=== PATIENT | male | born 1985 | race Two or more races ===

== ENCOUNTER 2025-03-12 09:35 | Day surgery (SDC) | payer MEDICAID, SELFPAY ==
[2025-03-12] VITALS (15 sets, daily range): BP systolic 134–170; BP diastolic 95–119; PULSE 82–118; RESP 13–20; TEMP 36.7–36.8; O2SAT 95–99; BMI 28.1
[2025-03-12] MEDS: RINGERS LACTATED 1000 ML 1,000 ML 60 ML IV (11:39)
[2025-03-12] MEDS: fentaNYL CIT INJ 50 mCg/ML AMP 2ML (ASD USE ONLY) IV (11:39)
[2025-03-12] MEDS: MIDAZOLAM INJ 1 MG/ML VIAL 2 ML (ASD USE ONLY) 2 MG IV (11:39)
[2025-03-12] MEDS: DiphenhydrAMINE INJ 50 MG/ML VIAL 25 MG IV (11:47)
[2025-03-12] MEDS: LABETALOL INJ 5 MG/ML VIAL 20 ML 2.5 MG IVP (12:10)
[2025-03-13] MEDS: SIMETHICONE 40 MG/0.6 ML ORAL SYRINGE (07:36)
== END 2025-03-12 12:55 | disposition home or self-care (01) ==
PROVIDERS: Referring Provider Internal Medicine Gastroenterology; Visit Provider Internal Medicine Gastroenterology
PROC: 0DBE8ZX Excision of Large Intestine, Via Natural or Artificial Opening Endoscopic, Diagnostic (ICD-10-PCS; CPT 45380; principal; 2025-03-12 09:00)
DX: K52.9 Noninfective gastroenteritis and colitis, unspecified (principal); R19.7 Diarrhea, unspecified; D12.3 Benign neoplasm of transverse colon; K64.9 Unspecified hemorrhoids; K57.30 Diverticulosis of large intestine without perforation or abscess without bleeding; D12.0 Benign neoplasm of cecum; K62.89 Other specified diseases of anus and rectum
CPT/HCPCS: 45385; 45380; A4649; J1200; J2250; J3010; J3490; J7120; A9270; J1920